=== PATIENT | female | born 1975 | race Caucasian/White ===

== ENCOUNTER 2017-11-27 11:34 | Emergency (ER) | payer OTHER ==
[~2017-11-27] VITALS: Wt 113.4 kg
[~2017-11-27 11:34] MED LIST: CLARITIN10 MG PO; FLAGYL500 MG PO; FLEXERIL5 MG PO; FLONASE0.05 MG/AC NS; HYDROCODONE BIT1 T11 PO; MOTRIN600 MG PO; MOTRIN800 MG PO; NEURONTIN600 MG PO; NORCO 10-325 T1 EACH PO; PREDNICOT20 MG PO; PREDNISONE20 MG PO; PRILOSEC40 MG PO; PROZAC20 MG PO; TYLENOL W/CODEI1 TA2 PO; VOLTAREN75 MG PO; ZANTAC 150150 MG PO
[2017-11-27] MEDS ORDERED: ANAPROX DS550 MG PO (11:39)
== END 2017-11-27 12:02 | disposition home or self-care (01) ==
LOC: ED 11:34
DX: M54.5 Low back pain (principal); G89.29 Other chronic pain; Z98.890 Other specified postprocedural states; Z79.899 Other long term (current) drug therapy; Z88.1 Allergy status to other antibiotic agents

== ENCOUNTER 2018-05-24 12:06 | Emergency (ER) | payer OTHER ==
[~2018-05-24] VITALS: Ht 160 cm; Wt 122.5 kg
[~2018-05-24 12:06] MED LIST changes: +ANAPROX DS550 MG PO
[2018-05-24 13:22] LABS: BASO % 0.3 % (0.0-1.0); EOS # 0.2 10*3/uL (0.0-0.4); EOS % 1.7 % (1.0-4.0); HEMATOCRIT 43.6 % (37.0-47.0); HEMOGLOBIN 14.5 g/dl (12.0-16.0); LYMPH # 4.2 10*3/uL (1.3-4.4); LYMPH % 33.4 % (27.0-41.0); MEAN CELL VOLUME 98.4 fl (81.0-99.0); MEAN CORPUSCULAR HGB 32.7 pg (27.0-31.0); MEAN CORPUSCULAR HGB CONC 33.3 g/dl (33.0-37.0); MEAN PLATELET VOLUME 9.4 fl (9.6-12.3); MONO # 1.3 10*3/uL (0.1-1.0); MONO % 10.2 % (3.0-9.0); NEUT # 6.7 10*3/uL (2.3-7.9); NEUT % 53.8 % (47.0-73.0); PLATELET COUNT AUTOMATED 208 10*3/uL (130-400); RED BLOOD COUNT 4.43 10*6/uL (4.10-5.10); RED CELL DISTRI WIDTH 13.7 % (0-14.5); WHITE BLOOD COUNT 12.5 10*3/uL (4.8-10.8)
[2018-05-24 13:34] LABS: BUN 11 mg/dl (7-24); CHLORIDE 104 mmol/L (98-107); CREATININE 0.65 mg/dL (0.55-1.02); POTASSIUM 4.8 mmol/L (3.5-5.1); SODIUM 138 mmol/L (136-145)
[2018-05-24] MEDS ORDERED: CYCLOBENZAPRINE10 MG PO (13:55)
[2018-05-24] MEDS ORDERED: AUGMENTIN 875875 MG PO (13:55)
[2018-05-24] MEDS ORDERED: MEDROL DOSEPAK4 MG PO (13:55)
== END 2018-05-24 14:51 | disposition home or self-care (01) ==
LOC: ED 12:06
PROVIDERS: Emergency Medicine
DX: S39.92XA Unspecified injury of lower back, initial encounter (principal); L03.213 Periorbital cellulitis; F17.200 Nicotine dependence, unspecified, uncomplicated; I10 Essential (primary) hypertension; Z88.1 Allergy status to other antibiotic agents; W19.XXXA Unspecified fall, initial encounter; Y93.89 Activity, other specified; Y92.89 Other specified places as the place of occurrence of the external cause; Y99.8 Other external cause status

== ENCOUNTER 2019-08-30 15:18 | Emergency (ER) | payer OTHER ==
[~2019-08-30] VITALS: Ht 160 cm; Wt 127.0 kg
[~2019-08-30 15:18] MED LIST changes: +AUGMENTIN 875875 MG PO; +CYCLOBENZAPRINE10 MG PO; +MEDROL DOSEPAK4 MG PO
[2019-08-30] MEDS ORDERED: AMOXICILLIN500 M2 PO (16:42)
[2019-08-30] MEDS ORDERED: PREDNISONE50 MG PO (16:42)
[2019-08-30] MEDS ORDERED: PROAIR HFA8.5 GM INH (16:42)
== END 2019-08-30 16:54 | disposition home or self-care (01) ==
LOC: ED 15:18
DX: J20.9 Acute bronchitis, unspecified (principal); F31.9 Bipolar disorder, unspecified; F17.200 Nicotine dependence, unspecified, uncomplicated; Z88.1 Allergy status to other antibiotic agents; Z79.899 Other long term (current) drug therapy; Z79.2 Long term (current) use of antibiotics

== ENCOUNTER 2020-11-24 14:54 | Emergency (ER) | payer OTHER ==
[~2020-11-24 14:54] MED LIST changes: +AMOXICILLIN500 M2 PO; +PREDNISONE50 MG PO; +PROAIR HFA8.5 GM INH
== END 2020-11-24 15:31 | disposition left against medical advice (07) ==
LOC: ED 14:54
DX: L02.91 Cutaneous abscess, unspecified (principal); Z53.21 Procedure and treatment not carried out due to patient leaving prior to being seen by health care provider

== ENCOUNTER 2021-01-15 12:36 | Emergency (ER) | payer OTHER ==
[2021-01-15 12:48] LABS: BASO % 0.2 % (0.0-1.0); EOS # 0.2 10*3/uL (0.0-0.4); HEMATOCRIT 37.4 % (37.0-47.0); LYMPH # 3.2 10*3/uL (1.3-4.4); LYMPH % 33.5 % (27.0-41.0); MEAN CORPUSCULAR HGB 29.7 pg (27.0-31.0); MEAN CORPUSCULAR HGB CONC 32.6 g/dl (33.0-37.0); MEAN PLATELET VOLUME 9.8 fl (9.6-12.3); MONO % 10.4 % (3.0-9.0); NEUT # 5.1 10*3/uL (2.3-7.9); NEUT % 53.5 % (47.0-73.0); PLATELET COUNT AUTOMATED 270 10*3/uL (130-400); RED BLOOD COUNT 4.11 10*6/uL (4.10-5.10); RED CELL DISTRI WIDTH 14.1 % (0-14.5); WHITE BLOOD COUNT 9.5 10*3/uL (4.8-10.8)
[2021-01-15 13:04] LABS: ALBUMIN 3.1 gm/dl (3.1-4.5); ALKALINE PHOSPHATASE 75 U/L (45-117); BUN 9 mg/dl (7-24); CHLORIDE 105 mmol/L (98-107); CREATININE 0.63 mg/dL (0.55-1.02); POTASSIUM 4.1 mmol/L (3.5-5.1); SGOT/AST 15 IU/L (3-35); SGPT/ALT 22 U/L (12-78); SODIUM 135 mmol/L (136-145)
[2021-01-15 13:06] LABS: TROPONIN I < 0.015 ng/ml (<0.045)
[2021-01-15] MEDS ORDERED: OMEPRAZOLE MAGN20 MG PO (14:26)
== END 2021-01-15 14:39 | disposition home or self-care (01) ==
LOC: ED 12:36
PROVIDERS: Student in an Organized Health Care Education/Training Program
DX: K21.9 Gastro-esophageal reflux disease without esophagitis (principal); Z88.8 Allergy status to other drugs, medicaments and biological substances; Z79.899 Other long term (current) drug therapy; Z98.890 Other specified postprocedural states

== ENCOUNTER 2021-03-26 20:04 | Emergency (ER) | payer OTHER ==
[~2021-03-26] VITALS: Ht 160 cm; Wt 127.0 kg
[~2021-03-26 20:04] MED LIST changes: +OMEPRAZOLE MAGN20 MG PO
[2021-03-26] MEDS ORDERED: LIPITOR40 MG PO (20:31)
[2021-03-26] MEDS ORDERED: METFORMIN HYDR500 MG PO (20:31)
[2021-03-26] MEDS ORDERED: LOSARTAN POTASS50 M1 PO (20:31)
[2021-03-26] MEDS ORDERED: LASIX20 MG PO (20:32)
[2021-03-26] MEDS ORDERED: ASPIRIN ADULT L81 M1 PO (20:32)
[2021-03-26] MEDS ORDERED: PROZAC40 M1 PO (20:32)
[2021-03-26] MEDS ORDERED: CLOPIDOGREL75 MG PO (20:32)
[2021-03-26 20:36] LABS: HEMATOCRIT 38.4 % (37.0-47.0); MEAN CELL VOLUME 91.4 fl (81.0-99.0); MEAN CORPUSCULAR HGB 28.3 pg (27.0-31.0); MEAN PLATELET VOLUME 9.6 fl (9.6-12.3); PLATELET COUNT AUTOMATED 272 10*3/uL (130-400); RED CELL DISTRI WIDTH 14.5 % (0-14.5); WHITE BLOOD COUNT 16.1 10*3/uL (4.8-10.8)
[2021-03-26 20:54] LABS: ALBUMIN 3.1 gm/dl (3.1-4.5); ALKALINE PHOSPHATASE 76 U/L (45-117); BUN 13 mg/dl (7-24); CHLORIDE 100 mmol/L (98-107); POTASSIUM 3.9 mmol/L (3.5-5.1); SGOT/AST 11 IU/L (3-35); SGPT/ALT 20 U/L (12-78); SODIUM 136 mmol/L (136-145); TOTAL PROTEIN 7.8 gm/dL (6.4-8.2)
[2021-03-26 20:55] LABS: TROPONIN I < 0.015 ng/ml (<0.045)
[2021-03-26 20:58] LABS: PLATELET SUFFICIENCY NORMAL (NORMAL); TOTAL CELLS COUNTED 100 #CELLS
== END 2021-03-26 22:15 | disposition left against medical advice (07) ==
LOC: ED 20:04
PROVIDERS: Emergency Medicine
DX: R07.89 Other chest pain (principal); Z88.1 Allergy status to other antibiotic agents; Z79.899 Other long term (current) drug therapy; Z79.82 Long term (current) use of aspirin